=== PATIENT | female | born 1975 | race Caucasian/White ===

== ENCOUNTER → 2017-09-23 | Emergency (ER) | payer OTHER ==
[~2017-09-23] VITALS: Ht 165.1 cm; Wt 71.7 kg
== END | disposition home or self-care (01) ==
LOC: ER 08:54
DX: K52.9 Noninfective gastroenteritis and colitis, unspecified (principal)

== ENCOUNTER 2018-03-22 14:32 | Emergency (ER) | payer OTHER ==
[~2018-03-22] VITALS: Ht 165.1 cm; Wt 75.3 kg
== END 2018-03-22 18:12 | disposition home or self-care (01) ==
LOC: ER 14:32
DX: M62.838 Other muscle spasm (principal); R51 Headache

== ENCOUNTER 2019-09-29 13:14 | Emergency (ER) | payer OTHER ==
[~2019-09-29] VITALS: Ht 165.1 cm; Wt 74.8 kg
== END 2019-09-29 18:54 | disposition home or self-care (01) ==
LOC: ER 13:14
DX: R10.31 Right lower quadrant pain (principal)

== ENCOUNTER 2020-07-18 20:08 | Emergency (ER) | payer OTHER ==
[~2020-07-18] VITALS: Ht 165.1 cm; Wt 72.6 kg
[2020-07-19] MEDS ORDERED: CIPRO500 MG PO (05:29)
[2020-07-19] MEDS ORDERED: KETO10TA2 PO (05:29)
== END 2020-07-19 05:45 | disposition home or self-care (01) ==
LOC: ER 20:08
DX: N39.0 Urinary tract infection, site not specified (principal); Z03.818 Encounter for observation for suspected exposure to other biological agents ruled out

== ENCOUNTER 2021-04-17 14:29 | Emergency (ER) | payer OTHER ==
[~2021-04-17] VITALS: Ht 167.6 cm; Wt 81.6 kg
[~2021-04-17 14:29] MED LIST: CIPRO500 MG PO; KETO10TA2 PO
[2021-04-17] MEDS ORDERED: TUSSI PRES-B L480 ML PO (17:33)
[2021-04-17] MEDS ORDERED: ZITHROMAX500 MG PO (17:33)
== END 2021-04-17 18:02 | disposition home or self-care (01) ==
LOC: ER 14:29
DX: R05 Cough (principal); Z03.818 Encounter for observation for suspected exposure to other biological agents ruled out

== ENCOUNTER 2021-08-07 17:55 | Emergency (ER) | payer OTHER ==
[~2021-08-07] VITALS: Ht 162.6 cm; Wt 74.8 kg
[~2021-08-07 17:55] MED LIST changes: +TUSSI PRES-B L480 ML PO; +ZITHROMAX500 MG PO
[2021-08-07] MEDS ORDERED: INTESTINEX680 M1 PO (21:57)
[2021-08-07] MEDS ORDERED: MUCINEX DM ER1 EAC1 PO (21:57)
[2021-08-07] MEDS ORDERED: PEPCID AC20 MG PO (21:57)
[2021-08-07] MEDS ORDERED: PROAIR RESPICL90 MCG IH (21:57)
== END 2021-08-07 22:41 ==
LOC: ER 17:55
DX: U07.1 COVID-19 (principal)

== ENCOUNTER 2022-03-17 09:33 | Emergency (ER) | payer OTHER ==
[~2022-03-17] VITALS: Ht 165.1 cm; Wt 75.3 kg
[~2022-03-17 09:33] MED LIST changes: +INTESTINEX680 M1 PO; +MUCINEX DM ER1 EAC1 PO; +PEPCID AC20 MG PO; +PROAIR RESPICL90 MCG IH
== END 2022-03-17 13:15 | disposition home or self-care (01) ==
LOC: ER 09:33
DX: R19.7 Diarrhea, unspecified (principal); E86.0 Dehydration

== ENCOUNTER 2022-03-19 11:30 | Emergency (ER) | payer OTHER ==
[~2022-03-19] VITALS: Ht 165.1 cm; Wt 76.2 kg
== END 2022-03-19 21:16 | disposition home or self-care (01) ==
LOC: ER 11:30
DX: R19.7 Diarrhea, unspecified (principal); Z20.822 Contact with and (suspected) exposure to COVID-19

== ENCOUNTER 2022-12-16 10:15 | Emergency (ER) | payer OTHER ==
[~2022-12-16] VITALS: Ht 167.6 cm; Wt 72.6 kg
== END 2022-12-16 14:42 | disposition home or self-care (01) ==
LOC: ER 10:15
DX: R10.2 Pelvic and perineal pain (principal)

== ENCOUNTER 2024-09-23 22:37 | Emergency (ER) | payer OTHER ==
[~2024-09-23] VITALS: Ht 162.6 cm; Wt 72.6 kg
[2024-09-24] MEDS ORDERED: KETOROLAC TROMETHAMINE 60 MG VIAL IM STA (00:28)
[2024-09-24] MEDS ORDERED: KETOROLAC TROMETHAMINE 60 MG VIAL IM ONE (01:21)
[2024-09-24] MEDS ORDERED: KETO10TA2 PO (02:49)
[2024-09-24] MEDS ORDERED: CEPHALEXIN500 MG PO (02:49)
== END 2024-09-24 03:33 ==
LOC: ER 22:39
DX: R68.84 Jaw pain (principal)